=== PATIENT | male | born 1960 | race Caucasian/White ===

== ENCOUNTER 2018-01-18 09:13 | Inpatient (IN) ==
--- NOTE | 2018-01-18 09:48 | XR ---
EXAM DATE: 01/18/2018 9:40 AM EDT AGE/SEX: 57 years / Male INDICATIONS: Shortness of breath. CLINICAL DATA: This is the patient's initial encounter. Patient reports that signs and symptoms have been present for 1 day and indicates a pain score of 0/10. MEDICAL/SURGICAL HISTORY: None. None. COMPARISON: No prior exams available for comparison. FINDINGS: A single AP view of the chest demonstrates the lungs to be symmetrically aerated without evidence of mass, infiltrate or effusion. The cardiomediastinal contours are unremarkable. Osseous structures a re intact. CONCLUSION: No acute cardiopulmonary disease. Electronically signed by: Juan Feliz MD 01/18/2018 9:47 AM EDT
[2018-01-18 09:52] LABS: Baso # (Auto) 0.3 th/mm3 (0.0-0.2); Baso % (Auto) 2.4 % (0.0-2.0); Eos # (Auto) 0.2 th/mm3 (0.0-0.4); Eos % (Auto) 1.7 % (0.0-4.0); Hematocrit 51.1 % (39.0-51.0); Hemoglobin 16.7 gm/dL (13.0-17.0); Lymph # (Auto) 4.2 th/mm3 (1.0-4.8); Lymph % (Auto) 31.9 % (9.0-44.0); Mean Corpuscular HGB Conc 32.8 % (32.0-36.0); Mean Corpuscular Hemoglobin 32.7 pg (27.0-34.0); Mean Corpuscular Volume 99.8 fL (80.0-100.0); Mean Platelet Volume 7.9 fL (7.0-11.0); Mono # (Auto) 1.2 th/mm3 (0.0-0.9); Mono % (Auto) 9.4 % (0.0-8.0); Neut # (Auto) 7.3 th/mm3 (1.8-7.7); Neut % (Auto) 54.6 % (16.0-70.0); Platelet Count 323 th/mm3 (150-450); Red Blood Count 5.12 mil/mm3 (4.50-5.90); Red Cell Distribution Width 12.8 % (11.6-17.2); White Blood Count 13.2 th/mm3 (4.0-11.0)
[2018-01-18 09:56] LABS: Calcium 9.1 mg/dL (8.5-10.1)
[2018-01-18 09:57] LABS: Albumin 3.9 g/dL (3.4-5.0); Anion Gap 11 meq/L (5-15); Carbon Dioxide 21.8 meq/L (21.0-32.0); Chloride 106 meq/L (98-107); Glucose,Random 164 mg/dL (74-106); Potassium 3.8 meq/L (3.5-5.1); Sodium 139 meq/L (136-145)
[2018-01-18 09:58] LABS: Lipase 108 U/L (73-393)
[2018-01-18 10:00] LABS: Alanine Aminotransferase 19 U/L (12-78); Glomerular Filtration Rate 69 mL/min (>89)
[2018-01-18 10:01] LABS: Activated Partial Thrombo Time 27.5 sec (24.3-30.1); Prothrombin Time 10.4 sec (9.8-11.6)
[2018-01-18 10:02] LABS: Total Protein 8.1 g/dL (6.4-8.2)
[2018-01-18 10:03] LABS: Alkaline Phosphatase 94 U/L (45-117); Creatine Kinase 120 U/L (39-308)
[2018-01-18 10:05] LABS: Troponin I 0.12 ng/mL (0.02-0.05)
[2018-01-18 10:07] LABS: Aspartate Aminotransferase 18 U/L (15-37); Blood Urea Nitrogen 14 mg/dL (7-18)
[2018-01-18 10:13] LABS: D-Dimer 0.43 mg/L FEU (0.00-0.50)
[2018-01-18 10:15] LABS: Creatine Kinase MB 1.7 ng/mL (0.5-3.6)
--- NOTE | 2018-01-18 10:49 | CT ---
EXAM DATE: 01/18/2018 10:45 AM EDT AGE/SEX: 57 years / Male INDICATIONS: Headache. CLINICAL DATA: This is the patient's initial encounter. Patient reports that signs and symptoms have been present for 2 days and indicates a pain score of 5/10. MEDICAL/SURGICAL HISTORY: None. None. RADIATION DOSE: 55.66 CTDI (mGy) COMPARISON: No prior exams available for comparison. TECHNIQUE: CT of the head without contrast. Using automated exposure control and adjustment of the mA and/or kV according to patient size, radiation dose was kept as low as reasonably achievable to ob tain optimal diagnostic quality images. DICOM format image data is available electronically for revi ew and comparison. FINDINGS: Cerebrum: The ventricles are normal for age. No evidence of midline shift, mass lesion, hemorrhage or acute infarction. No extraaxial fluid collections are seen. Posterior Fossa: The cerebellum and brainstem are intact. The 4th ventricle is midline. The cerebe llopontine angle is unremarkable. Extracranial: The visualized portion of the orbits is intact. Skull: The calvaria is intact. No evidence of skull fracture. CONCLUSION: 1. Negative noncontrast head CT. . Electronically signed by: Juan Feliz MD 01/18/2018 10:48 AM EDT
--- NOTE | 2018-01-18 10:54 | CT ---
EXAM DATE: 01/18/2018 10:49 AM EDT AGE/SEX: 57 years / Male INDICATIONS: Short of breath. CLINICAL DATA: This is the patient's initial encounter. Patient reports that signs and symptoms have been present for 2 days and indicates a pain score of 0/10. MEDICAL/SURGICAL HISTORY: None. None. RADIATION DOSE: 13.77 CTDI (mGy) COMPARISON: [facility]PO, CHEST 1V SINGLE AP, 01/18/2018. . TECHNIQUE: Volumetric scanning was performed using a multi-row detector CT scanner during bolus infu emily of 65 ml Omnipaque 350 (iohexol) nonionic water-soluble contrast as a single exam dose. The frandy a was post processed with a variety of visualization algorithms including full volume maximum intensi ty projection and sliding thin slab reformation. Using automated exposure control and adjustment of t he mA and/or kV according to patient size, radiation dose was kept as low as reasonably achievable to obtain optimal diagnostic quality images. DICOM format image data is available electronically for r eview and comparison. FINDINGS: Pulmonary Arteries: No filling defects are seen in the pulmonary arteries out to the subsegmental ve ssels. The left and right pulmonary arteries are normal in diameter. Lung: No infiltrates seen. Effusion: None. Mediastinum: No evidence of mediastinal or hilar adenopathy. Coronary artery calcifications are pres ent. Other: The axilla is unremarkable. CONCLUSION: 1. No evidence of pulmonary embolism. 2. Coronary artery calcifications are present. Electronically signed by: Juan Feliz MD 01/18/2018 10:53 AM EDT
[2018-01-18] MEDS ORDERED: Heparin 10,000 UNIT/ML Vial (IV Additive) IV.PUSH STA (11:05)
--- NOTE | 2018-01-18 11:05 | ED ---
HPI General Chief Complaint: Arrhythmia/Palpitations Stated Complaint: sob Time Seen by Provider: 01/18/18 09:22 Source: patient Mode of arrival: EMS Limitations: no limitations and altered mental status History of Present Illness HPI narrative: 57 years old male complains of headache, and chest pain. Patient states that headache started about half an hour prior to arrival. Patient started having aching neck pain and chest discomfort. Patient denies any visual change. Patient denies any neck stiffness. Patient denies any coughing congestion fever chills. Patient states that the chest discomfort is pressure pain across the anterior chest wall. Patient denies any pain radiation. Patient complains of palpitation. Patient denies nausea diaphoresis. Patient complained of shortness of breath. Patient denies history of CAD. Patient denies history hypertension, diabetes, hyperlipidemia. Patient is a smoker. Patient has family history of heart disease. Patient denies history of drug abuse. EMS was called. Patient refused IV and treatment on the way to the ED.. complaint: chest pain Complete Quality Measures for STEMI Alert Patients STEMI Alert: No Onset (ago): minute(s) Duration: constant Onset: during rest Pain location: substernal, left chest and right chest Severity: moderate Severity scale (1-10): 7 Quality: tightness, aching and heaviness Pain radiation: none Relieving factors: nothing Exacerbating factors: nothing Associated symptoms: dyspnea Treatments prior to arrival chest pain: none Related Data Home Medications Medication Instructions Recorded Confirmed No Known Home Medications 01/18/18 01/18/18 Allergies Allergy/AdvReac Type Severity Reaction Status Date / Time No Known Allergies Allergy Unverified 01/18/18 09:23 Review of Systems Except as stated in HPI: all other systems reviewed are negative [facility] Medical History Medical History Patient denies medical problems (Acute) Surgical History Surgical History No history of previous surgery (Acute) Social History Social History Substance History: Active Abuse Second Hand Smoke Exposure: Yes Smoking Status: Current every day smoker Tobacco Type: Cigarettes How Often Do You Have a Drink Containing Alcohol: 4 or more times a week Recent Travel in [facility] within the Last 8 Weeks: No Recent Out of Country Travel within the Last 8 Weeks: No Substance Abuse Detail Marijuana: Substance Use Status: Active Route Used Substance Abuse: Inhalation Substance Frequency: often Reason for Use: Calm Down Immunization History Tetanus Immunization: <5 Years Hx Influenza Vaccine This Season: No Exam Narrative Exam Narrative: GENERAL: Well-nourished, well-developed patient. SKIN: Focused skin assessment warm/dry. HEAD: Normocephalic. EYES: No scleral icterus. No injection or drainage. NECK: Supple, trachea midline. No JVD or lymphadenopathy. CARDIOVASCULAR: Regular rate and rhythm without murmurs, gallops, or rubs. RESPIRATORY: Breath sounds equal bilaterally. No accessory muscle use. GASTROINTESTINAL: Abdomen soft, non-tender, nondistended. MUSCULOSKELETAL: No cyanosis, or edema. BACK: Nontender without obvious deformity. No CVA tenderness. Neurologic exam normal. Course Initial Documented Vital Signs Temperature 98 F 01/18/18 09:21 Pulse Rate 86 01/18/18 09:21 Respiratory Rate 26 H 01/18/18 09:21 Blood Pressure 222/102 H 01/18/18 09:21 Pulse Oximetry 100 01/18/18 09:21 Last Documented Vital Signs Temperature 98 F 01/18/18 09:25 Pulse Rate 63 01/18/18 11:00 Respiratory Rate 18 01/18/18 11:00 Blood Pressure 179/100 H 01/18/18 11:00 Pulse Oximetry 98 01/18/18 11:00 Medical Decision Making MDM Narrative Medical decision making narrative: 57 years old male with headache, neck pain, chest pain, shortness of breath. Patient is anxious and refusing treatment by EMS on the way to ED. EKG show sinus rhythm with frequent PVCs. No previous EKG for comparison. Patient is anxious. Patient was given Ativan 1 mg IV 2. Aspirin 325 mg p.o. given. Nitro paste 1 inch on chest wall. Heparin bolus and drip started. I spoke with monorail operator Dr. Alex. Patient will be transferred emergently to the main hospital to be admitted to CICU for possible cardiac cath this afternoon. Differential Diagnosis Differential Diagnosis: Diagnosis including cephalgia, angina, [place], PE, pneumothorax. Lab Data Lab results reviewed: Yes I reviewed the patient's lab results. Result diagrams: 01/18/18 09:20 01/18/18 09:20 Lab Results 01/18/18 01/18/18 01/18/18 Range/Units 09:20 09:20 09:20 CBC w Diff Auto diff final WBC 13.2 H (4.0-11.0) th/mm3 RBC 5.12 (4.50-5.90) mil/mm3 Hgb 16.7 (13.0-17.0) gm/dL Hct 51.1 H (39.0-51.0) % MCV 99.8 (80.0-100.0) fL MCH 32.7 (27.0-34.0) pg MCHC 32.8 (32.0-36.0) % RDW 12.8 (11.6-17.2) % Plt Count 323 (150-450) th/mm3 MPV 7.9 (7.0-11.0) fL Neut % (Auto) 54.6 (16.0-70.0) % Lymph % (Auto) 31.9 (9.0-44.0) % Dale % (Auto) 9.4 H (0.0-8.0) % Eos % (Auto) 1.7 (0.0-4.0) % Baso % (Auto) 2.4 H (0.0-2.0) % Neut # (Auto) 7.3 (1.8-7.7) th/mm3 Lymph # (Auto) 4.2 (1.0-4.8) th/mm3 Dale # (Auto) 1.2 H (0.0-0.9) th/mm3 Eos # (Auto) 0.2 (0.0-0.4) th/mm3 Baso # (Auto) 0.3 H (0.0-0.2) th/mm3 WBC Differential . Differential Comment . PT 10.4 (9.8-11.6) sec INR 1.0 Ratio APTT 27.5 (24.3-30.1) sec D-Dimer Quant (PE/DVT) 0.43 (0.00-0.50) mg/L FEU Sodium (136-145) meq/L Potassium (3.5-5.1) meq/L Chloride (98-107) meq/L Carbon Dioxide (21.0-32.0) meq/L Anion Gap (5-15) meq/L BUN (7-18) mg/dL Creatinine (0.60-1.30) mg/dL Estimated GFR (>89) mL/min Random Glucose (74-106) mg/dL Calcium (8.5-10.1) mg/dL Total Bilirubin (0.2-1.0) mg/dL AST (15-37) U/L ALT (12-78) U/L Alkaline Phosphatase (45-117) U/L Total Creatine Kinase (39-308) U/L CK-MB (CK-2) (0.5-3.6) ng/mL Troponin I (0.02-0.05) ng/mL Total Protein (6.4-8.2) g/dL Albumin (3.4-5.0) g/dL Lipase Cancelled Serum Alcohol Cancelled 01/18/18 01/18/18 Range/Units 09:20 09:20 CBC w Diff WBC (4.0-11.0) th/mm3 RBC (4.50-5.90) mil/mm3 Hgb (13.0-17.0) gm/dL Hct (39.0-51.0) % MCV (80.0-100.0) fL MCH (27.0-34.0) pg MCHC (32.0-36.0) % RDW (11.6-17.2) % Plt Count (150-450) th/mm3 MPV (7.0-11.0) fL Neut % (Auto) (16.0-70.0) % Lymph % (Auto) (9.0-44.0) % Dale % (Auto) (0.0-8.0) % Eos % (Auto) (0.0-4.0) % Baso % (Auto) (0.0-2.0) % Neut # (Auto) (1.8-7.7) th/mm3 Lymph # (Auto) (1.0-4.8) th/mm3 Dale # (Auto) (0.0-0.9) th/mm3 Eos # (Auto) (0.0-0.4) th/mm3 Baso # (Auto) (0.0-0.2) th/mm3 WBC Differential Differential Comment PT Cancelled (9.8-11.6) sec INR Cancelled Ratio APTT Cancelled (24.3-30.1) sec D-Dimer Quant (PE/DVT) (0.00-0.50) mg/L FEU Sodium 139 (136-145) meq/L Potassium 3.8 (3.5-5.1) meq/L Chloride 106 (98-107) meq/L Carbon Dioxide 21.8 (21.0-32.0) meq/L Anion Gap 11 (5-15) meq/L BUN 14 (7-18) mg/dL Creatinine 1.10 (0.60-1.30) mg/dL Estimated GFR 69 L (>89) mL/min Random Glucose 164 H (74-106) mg/dL Calcium 9.1 (8.5-10.1) mg/dL Total Bilirubin 0.3 (0.2-1.0) mg/dL AST 18 (15-37) U/L ALT 19 (12-78) U/L Alkaline Phosphatase 94 (45-117) U/L Total Creatine Kinase 120 (39-308) U/L CK-MB (CK-2) 1.7 (0.5-3.6) ng/mL Troponin I 0.12 H (0.02-0.05) ng/mL Total Protein 8.1 (6.4-8.2) g/dL Albumin 3.9 (3.4-5.0) g/dL Lipase 108 Serum Alcohol Less than 3 Imaging Data Attestation: I personally reviewed and interpreted this imaging study as follows : Radiologist's impression: Chest CTA 01/18/18 09:23 CONCLUSION: 1. No evidence of pulmonary embolism. 2. Coronary artery calcifications are present. Chest X-Ray 01/18/18 09:24 CONCLUSION: No acute cardiopulmonary disease. Head CT 01/18/18 09:26 CONCLUSION: 1. Negative noncontrast head CT. . Discharge Plan Discharge Disposition Patient Disposition: 30 Still Patient Discharge Details Diagnosis: Non-ST elevation [place] (NSTEMI) Physicians Team ED Provider: Ritesh Villagran Primary Care Provider: Primary Care Kathryn Marino Other Providers: Mika Alex Rxs /Orders / Referrals /Forms Prescriptions: No Action No Known Home Medications RF: 0 Discharge Interventions Interventions: Vital Signs Last Done: 01/18/18 11:00 Status ED Status: Admitted Patient
[2018-01-18] MEDS ORDERED: Heparin Drip 25,000 UNIT/250 ML BAG IV.CONT PRN (11:12)
[2018-01-18] MEDS ORDERED: Heparin 10,000 UNITS/10 ML Vial (for IV use) IV.PUSH ONE (11:30)
[2018-01-18 12:04] LABS: Amphetamine Screen,Urine Neg (Neg); Barbiturate Screen,Urine Neg (Neg); Cannabinoid Screen,Urine Pos (Neg); Cocaine Screen,Urine Neg (Neg)
[2018-01-18 12:09] LABS: Opiate Screen,Urine Neg (Neg)
[2018-01-18] MEDS ORDERED: Morphine Sulfate Inj 2 MG/ML Vial IV.PUSH PRN (12:10)
[2018-01-18] MEDS ORDERED: Acetaminophen 325 MG Tablet PO PRN (12:10)
[2018-01-18] MEDS ORDERED: Docusate Sodium 100 MG Capsule PO PRN (12:10)
--- NOTE | 2018-01-18 12:10 | P.HP ---
History of Present Illness Primary Care Physician: No Primary Care Physician Chief Complaint: Chest pain History of Present Illness: 57-year-old male with no chronic medical illnesses who presented to the hospital for evaluation of chest pain. Patient states that he was normal state of health when he woke up this morning he got in the shower, while he is in the shower he started developing a headache that went down into his neck and it is eventually developed left-sided chest pain. Indicates that the pain was a 5/10 on a pain scale and associated with nausea, diaphoresis, radiation in in from his neck, he denies any shortness of breath, dyspnea, lightheadedness, dizziness. The pain did not go away so they called the paramedics who came and evaluated the patient. Patient refused any treatment while he was in route to the hospital. Patient got to the hospital he was given aspirin, Nitropaste with complete resolution of his pain. Workup did include troponins which were elevated, EKG shows frequent PVCs. ER physician did contact embedded linux developer on- call who recommended the patient be transferred to the main hospital for non-ST elevated myocardial infarction and likely cardiac catheterization. Patient was started on aspirin, Nitropaste. Upon evaluating patient this morning he is asymptomatic at this time. He is rather somnolent. Patient denies any previous cardiac workup or stress testing. Patient denies any pertinent family history - Diagnosis (1) Non-ST elevation [place] (NSTEMI) Inpatient Certification: I certify that the inpatient services were ordered in accordance with Medicare regulations governing the order. This includes certification that hospital inpatient services are reasonable and necessary and in the case of services not specified as inpatient-only under 42 CFR 419.22(n), that they are appropriately provided as inpatient services in accordance to with the 2-midnight benchmark under 43 CFR 412.3(e) Review of Systems All other systems reviewed negative except as stated in HPI Constitutional: Reports excessive sweating Cardiovascular: Reports chest pain Gastrointestinal: Reports nausea PMFSH - History History Provided By: Patient, Door Technician / EMT - Medical History Medical History: Medical History (Last Reviewed 01/18/18 @ 12:05 by TRENT Santos) Patient denies medical problems (Acute) - Surgical History Surgical History: Surgical History (Last Reviewed 01/18/18 @ 12:05 by TRENT Santos) No history of previous surgery (Acute) - Family History Family History: Family History (Last Updated 01/18/18 @ 12:05 by TRENT Santos) Other No pertinent family history - Tobacco History Second Hand Smoke Exposure: Yes Tobacco Use In Past 30 Days: Yes Smoking Status: Current every day smoker Tobacco Type: Cigarettes Packs Per Day: 1 Years Smoked: 45 - Alcohol History How Often Do You Have a Drink Containing Alcohol: 4 or more times a week - Substance Use History Substance History: Active Abuse - Substance Use Type Marijuana Status: Active Route Used: Inhalation Frequency: often Reason for Use: Calm Down - Travel History Recent Travel in the [place] Within the Last 8 Weeks: No Recent Travel Out of the Country Within the Last 8 Weeks: No - Immunization History Tetanus Immunization: <5 Years Hx Influenza Vaccine This Season: No Medications and Allergies Active Medications: Active Medications Heparin Sodium/Dextrose (Heparin/D5w 25,000 U/250 Ml) 25,000 unit in 250 mls @ 0 mls/hr IV.CONT TITRATE PRN; Protocol PRN Reason: Per Protocol Allergies Allergy/AdvReac Type Severity Reaction Status Date / Time No Known Allergies Allergy Unverified 01/18/18 09:23 Home Medications Medication Instructions Recorded Confirmed Type No Known Home Medications 01/18/18 01/18/18 History Exam Vital signs: Vital Signs 01/18/18 09:21 01/18/18 09:25 01/18/18 10:23 Temperature 98 F 98 F Pulse Rate 86 76 70 Respiratory Rate 26 H 24 20 Blood Pressure 222/102 H 199/101 H 149/98 H Pulse Oximetry 100 100 100 01/18/18 11:00 Temperature Pulse Rate 63 Respiratory Rate 18 Blood Pressure 179/100 H Pulse Oximetry 98 Intake & Output 01/17/18 01/18/18 01/18/18 18:59 06:59 18:59 Weight 68.039 kg Narrative: GENERAL: Well-developed, well-nourished, in no acute distress. alert and orientated HEENT: Head is normocephalic without any lesions or masses noted. Facial features are symmetric. Eyes: Pupils equal round reactive to light. Extraocular muscles are intact. Conjunctivae were clear. Oropharyngeal: Pharynx without any erythema edema. Tongue is midline without deviation. Buccal mucosa is moist without any masses or lesions NECK: Supple without any masses. Trachea midline no deviation. No JVD, no bruits are appreciated CARDIAC: Regular rhythm, regular rate. S1/S2 are heard. No murmurs gallops or rubs. LUNGS: Clear to auscultation bilaterally. No wheeze, rhonchi or rales. No use of accessory muscles on inspiration or expiration. ABDOMEN: Soft, nontender. Nondistended. Bowel sounds heard in all 4 quadrants. No organomegaly or masses. Negative rebound, negative guarding EXTREMITIES: No edema, pulses are equal bilaterally. No cyanosis or clubbing NEUROLOGY: Mood and affect appear appropriate. Cranial nerves II through XII grossly intact. Muscle strength 5/5 in upper and lower extremities bilaterally. Deep tendon reflexes are 2+ in upper and lower extremities bilaterally. Results - Labs CBC & Chem 7: 01/18/18 09:20 01/18/18 09:20 Labs: Laboratory Results - last 24 hr 01/18/18 01/18/18 01/18/18 09:20 09:20 09:20 CBC w Diff Auto diff final WBC 13.2 H RBC 5.12 Hgb 16.7 Hct 51.1 H MCV 99.8 MCH 32.7 MCHC 32.8 RDW 12.8 Plt Count 323 MPV 7.9 Neut % (Auto) 54.6 Lymph % (Auto) 31.9 Gordon % (Auto) 9.4 H Eos % (Auto) 1.7 Baso % (Auto) 2.4 H Neut # (Auto) 7.3 Lymph # (Auto) 4.2 Gordon # (Auto) 1.2 H Eos # (Auto) 0.2 Baso # (Auto) 0.3 H WBC Differential . Differential Comment . PT 10.4 INR 1.0 APTT 27.5 D-Dimer Quant (PE/DVT) 0.43 Sodium Potassium Chloride Carbon Dioxide Anion Gap BUN Creatinine Estimated GFR Random Glucose Calcium Total Bilirubin AST ALT Alkaline Phosphatase Total Creatine Kinase CK-MB (CK-2) Troponin I Total Protein Albumin Lipase Cancelled Serum Alcohol Cancelled 01/18/18 01/18/18 09:20 09:20 CBC w Diff WBC RBC Hgb Hct MCV MCH MCHC RDW Plt Count MPV Neut % (Auto) Lymph % (Auto) Gordon % (Auto) Eos % (Auto) Baso % (Auto) Neut # (Auto) Lymph # (Auto) Gordon # (Auto) Eos # (Auto) Baso # (Auto) WBC Differential Differential Comment PT Cancelled INR Cancelled APTT Cancelled D-Dimer Quant (PE/DVT) Sodium 139 Potassium 3.8 Chloride 106 Carbon Dioxide 21.8 Anion Gap 11 BUN 14 Creatinine 1.10 Estimated GFR 69 L Random Glucose 164 H Calcium 9.1 Total Bilirubin 0.3 AST 18 ALT 19 Alkaline Phosphatase 94 Total Creatine Kinase 120 CK-MB (CK-2) 1.7 Troponin I 0.12 H Total Protein 8.1 Albumin 3.9 Lipase 108 Serum Alcohol Less than 3 - Imaging Impressions Chest CTA 01/18/18 09:23 CONCLUSION: 1. No evidence of pulmonary embolism. 2. Coronary artery calcifications are present. Chest X-Ray 01/18/18 09:24 CONCLUSION: No acute cardiopulmonary disease. Head CT 01/18/18 09:26 CONCLUSION: 1. Negative noncontrast head CT. . Caprini VTE Risk Assessment Caprini VTE Risk Assessment: Moderate/High Risk (score >= 2) Caprini Risk Assessment Model: Point Value = 1 Point Value = 2 Point Value = 3 Point Value = 5 Age 41-60 Minor surgery BMI > 25 kg/m2 Swollen legs Varicose veins or History of unexplained or recurrent spontaneous Oral contraceptives or hormone replacement Sepsis (< 1 month) Serious lung disease, including pneumonia (< 1 month) Abnormal pulmonary function Acute myocardial infarction Congestive heart failure (< 1 month) History of inflammatory bowel disease Medical patient at bed rest Age 61-74 Arthroscopic surgery Major open surgery (> 45 min) Laparoscopic surgery (> 45 min) Malignancy Confined to bed (> 72 hours) Immobilizing plaster cast Central venous access Age >= 75 History of VTE Family history of VTE Factor V Leiden Prothrombin [id number] Lupus anticoagulant Anticardiolipin antibodies Elevated serum homocysteine Heparin-induced thrombocytopenia Other congenital or acquired thrombophilia Stroke (< 1 month) Elective arthroplasty Hip, pelvis, or leg fracture Acute spinal cord injury (< 1 month) Prophylaxis Regimen: Total Risk Factor Score Risk Level Prophylaxis Regimen 0-1 Low Early ambulation 2 Moderate Order ONE of the following: *Sequential Compression Device (SCD) *Heparin 5000 units SQ BID 3-4 Higher Order ONE of the following medications: *Heparin 5000 units SQ TID *Enoxaparin/Lovenox 40 mg SQ daily (WT < 150 kg, CrCl > 30 mL/min) *Enoxaparin/Lovenox 30 mg SQ daily (WT < 150 kg, CrCl > 10-29 mL/min) *Enoxaparin/Lovenox 30 mg SQ BID (WT < 150 kg, CrCl > 30 mL/min) AND/OR *Sequential Compression Device (SCD) 5 or more Highest Order ONE of the following medications: *Heparin 5000 units SQ TID (Preferred with Epidurals) *Enoxaparin/Lovenox 40 mg SQ daily (WT < 150 kg, CrCl > 30 mL/min) *Enoxaparin/Lovenox 30 mg SQ daily (WT < 150 kg, CrCl > 10-29 mL/min) *Enoxaparin/Lovenox 30 mg SQ BID (WT < 150 kg, CrCl > 30 mL/min) AND *Sequential Compression Device (SCD) Assessment and Plan - Assessment (1) Non-ST elevation [place] (NSTEMI) Code(s): I21.4 - Non-ST elevation (NSTEMI) myocardial infarction Status: Acute - Plan Acute coronary syndrome with non-ST elevated myocardial infarction -Patient with increased risk factors include age, male, tobacco use -Initial troponins were elevated, will continue to trend cardiac enzymes -EKG was reviewed by myself which did indicate sinus rhythm with frequent PVCs, no ST elevations -Cardiology was contacted by ER physician and formal consult has been requested -Patient was given aspirin emergency department, heparin drip has been started, Nitropaste has been applied -We will start beta-abeba, statin -Check lipid panel Hyperglycemia -Check hemoglobin A1c -Accu-Cheks with sliding scale insulin Leukocytosis -Likely reactive -No obvious signs of infection at this time -Follow CBC DVT prevention -Patient is on heparin IV
[2018-01-18] MEDS ORDERED: Dextrose 50% in Water 50 ML Vial IV.PUSH PRN (12:14)
[2018-01-18] MEDS ORDERED: Metoprolol Tartrate 25 MG Tablet PO SCH (12:15)
[2018-01-18] MEDS ORDERED: Sod Chloride 0.9% Inj 1,000 ML IV.CONT SCH (12:16)
[2018-01-18] MEDS ORDERED: Insulin NovoLOG Aspart Correctional Sugar Inj SQ SCH (17:00)
[2018-01-18 17:54] LABS: Chol/HDL Ratio 3.41 Ratio; HDL Cholesterol 67.9 mg/dL (40.0-60.0)
--- NOTE | 2018-01-18 18:13 | ECG ---
Date Performed: 01/18/2018 Time Performed: 09:14:58 PTAGE: 57 years EKG: Sinus rhythm PVCS BORDERLINE LEFT AXIS DEVIATION MODERATE ST DEPRESSION ABNORMAL ECG NO PREVIOUS TRACING DOCTOR: Hawk Spencer Interpretating Date/Time 01/18/2018 18:12:19
[2018-01-18 18:23] LABS: Hemoglobin A1c 5.7 % (4.3-6.0)
--- NOTE | 2018-01-18 19:03 | MB ---
cc: Mika Alex MD DATE: 01/18/2018 HISTORY OF PRESENT ILLNESS: Milton is a pleasant 57-year-old gentleman who smokes who just recently moved here. He was moving a lot of home furnishings, developed chest pain today, was found to have elevated troponin in [facility] emergency room and was transferred to the main campus of [facility]. At that time, I talked to the patient he was not having any chest pain. Two nurses were present. The patient otherwise denied any fever, chills, cough, GI or bleeding, PND, orthopnea, syncope or dizziness. PAST MEDICAL HISTORY: Per history of present illness. The patient also is complaining of headache. PAST MEDICAL HISTORY: Per history of present illness. SOCIAL HISTORY: He smokes. He drinks alcohol during the week occasionally. ALLERGIES: NONE. MEDICATIONS: Aspirin 325, Lipitor 10, heparin bolus and drip, metoprolol 12.5 b.i.d., 1 inch nitro paste. PHYSICAL EXAMINATION: VITAL SIGNS: His initial blood pressure was 222/102. Temperature 97.0, pulse 78, blood pressure 108/73, respiratory rate 16. GENERAL: He is alert and oriented x 3, in no acute distress. NECK: Supple. No JVD. No bruit. CARDIOVASCULAR: S1, S2. No murmurs, rubs or gallops. LUNGS: Clear to auscultation bilaterally. ABDOMEN: Soft, nontender and nondistended with positive bowel sounds. EXTREMITIES: No lower extremity edema. DIAGNOSTIC STUDIES: CTA of the chest: No evidence of pulmonary embolism. Coronary artery calcifications are present. Head CT: Negative contrast head CT. EKG: Normal sinus rhythm with frequent PVCs, anteroseptal Q-waves; 1-[address] depression in lead V4, V5, V6 and a left anterior fascicular block. Chest x-ray: No acute cardiopulmonary disease. LABORATORY DATA: White count 13.2, hemoglobin 16.7, hematocrit 51.1, platelet count 323. Sodium 139, potassium 3.8, chloride 106, bicarbonate 21.8, BUN 14, creatinine 1.0, glucose 164. Troponin 0.12. LDL is 147. INR is 1.0. Toxicology is positive for cannabinoids. DIAGNOSES: 1. [id number] myocardial infarction. 2. Hypertension. 3. Ventricular ectopy. 4. Cannabis abuse. 5. Elevated white count. 6. Coronary artery disease. 7. Hyperglycemia. 8. Hyperlipidemia. 9. Tobacco abuse. DISCUSSION: At this point in time, in the presence of the nurses, I have recommend a left heart catheterization. I explained that I cannot rule out life threatening ischemic etiology to the patient's symptoms. The patient refuses. I emphasized that again he may have a life threatening coronary artery lesion. The patient understands and still refuses left heart catheterization. I told him that we would treat him with optimal medical therapy. The patient stated he was going to leave AMA. Again, I explained to him that he has a high risk presentation with elevated troponin, resting ischemia on EKG with frequent ectopy and he has high risk for mortality without further evaluation and management and observation. The patient completely understands in the presence of nursing staff and again insists on leaving against medical advice. Otherwise, I have strongly advised him to stop smoking. MD CRISTY Kerns/AMAURY , 06:16 PM , 07:01 PM
--- NOTE | 2018-01-19 19:05 | ECG ---
Date Performed: 01/18/2018 Time Performed: 15:07:40 PTAGE: 57 years EKG: Sinus rhythm with frequent PVCs Leftward axis Poor R wave progression - probable normal variant Abnormal ECG PREVIOUS TRACING : 01/18/2018 09.14 Since the previous tracing, no significant change noted DOCTOR: Hawk Spencer Interpretating Date/Time 01/19/2018 19:04:49
== END 2018-01-18 16:47 | disposition left against medical advice (07) ==
LOC: PHED 09:13 → PHEDA 11:51 → HCIS 14:09
PROVIDERS: ADMIT Family Medicine; ATTEND Family Medicine